=== PATIENT | male | born 1970 | race African-American/Black ===

== ENCOUNTER 2021-04-08 15:30 | Inpatient (IN) | payer MEDICARE, MEDICAID ==
[2021-04-08] MEDS ORDERED: HYDROcodone/Acetaminophen 10/325 mg Tablet PO PRN (20:32)
[2021-04-08] MEDS ORDERED: Bisacodyl 5 MG TAB PO PRN (20:35)
[2021-04-08] MEDS ORDERED: Artificial Tear Sol 15 ML BOT EA EYE PRN (20:35)
[2021-04-08] MEDS ORDERED: diphenhydrAMINE 25 MG CAP PO PRN (20:35)
[2021-04-08] MEDS ORDERED: Cepastat Lozenges 1 LOZ PO PRN (20:35)
[2021-04-08] MEDS ORDERED: Eucerin (Mineral Oil/Petrolatum,White) 30 gm Jar TOP PRN (20:35)
[2021-04-08] MEDS ORDERED: Senokot S 8.6-50 MG TAB PO PRN (20:35)
[2021-04-08] MEDS ORDERED: Acetaminophen 650 MG Suppository PR PRN (20:35)
[2021-04-08] MEDS ORDERED: Acetaminophen 325 MG TAB PO PRN (20:35)
[2021-04-08] MEDS ORDERED: cloNIDine 0.1 MG TAB PO PRN (20:35)
[2021-04-08] MEDS ORDERED: Loperamide HCl 2 MG CAP PO PRN ×2 (20:35)
[2021-04-08] MEDS ORDERED: Calcium Carbonate 500 MG ChewTAB PO PRN (20:35)
[2021-04-08] MEDS ORDERED: Ondansetron ODT 4 MG TAB PO PRN (20:35)
[2021-04-08] MEDS ORDERED: Ondansetron PF 4 MG/2 ML Vial IVP PRN (20:35)
[2021-04-08] MEDS: Famotidine 20 MG TAB PO SCH (21:56)
[2021-04-08] MEDS: CeleCOXIB 100 MG CAP PO SCH (21:56)
[2021-04-08] MEDS: Betamethasone Val 0.1% OINT 15 GM TUBE TOP SCH (21:58)
[2021-04-09 05:41] LABS: Band 7 % (5-11); Eosinophils 8 % (0-10); Hemoglobin 9.3 g/dL (14.0-18.0); Hypochromia SLIGHT = 6-15 cells (100X) (0-5/hpf); Lymphocytes 24 % (21-51); MDiff Complete? YES; Mean Corpuscular HGB CONC 30.8 g/dL (32.0-36.0); Mean Corpuscular Hemoglobin 24.1 pg (27.0-31.0); Mean Corpuscular Volume 78.3 fL (78.0-98.0); Mean Platelet Volume 5.5 fL (7.4-10.4); Metamyelocyte 1 % (0-0); Microcytosis MODERATE=15-30 cells (100X) (0-5/hpf); Monocytes 6 % (0-10); Neutrophil 54 % (42-75); Platelet Count 782 thou/uL (130-400); Platelet Morphology Comment Appears Increased; Red Blood Cell (RBC) Count 3.86 mill/uL (4.70-6.10); White Blood Cell (WBC) Count 15.8 thou/uL (4.8-10.8)
[2021-04-09 05:45] LABS: ALT (SGPT) 38 U/L (8-55); AST (SGOT) 19 U/L (5-34); Albumin 3.4 g/dL (3.5-5.0); Alkaline Phosphatase 65 U/L (40-110); Anion Gap 14 mmol/L (10-20); BUN (Urea Nitrogen) 16 mg/dL (8.4-25.7); Bilirubin, Total 0.2 mg/dL (0.2-1.2); Calc. Creatinine Clearance 133 mL/min (70-130); Calcium 9.4 mg/dL (7.8-10.44); Carbon Dioxide 24 mmol/L (22-29); Chloride 103 mmol/L (98-107); Globulin 4.4 g/dL (2.4-3.5); Glucose 82 mg/dL (70-105); Potassium 4.2 mmol/L (3.5-5.1); Protein, Total 7.8 g/dL (6.0-8.3); Sodium 137 mmol/L (136-145)
[2021-04-09] MEDS ORDERED: Ondansetron ODT 4 MG TAB SL PRN (07:30)
[2021-04-09] MEDS: Ascorbic Acid 500 mg Chewable Tablet PO SCH (08:25)
[2021-04-09] MEDS: CeleCOXIB 100 MG CAP PO SCH ×2 (08:26→20:12)
[2021-04-09] MEDS: Famotidine 20 MG TAB PO SCH ×2 (08:26→20:13)
[2021-04-09] MEDS: Thiamine 100 MG TAB PO SCH (08:26)
[2021-04-09] MEDS: Cholecalciferol 1,000 UNITS (25 MCG) TAB PO SCH (08:27)
[2021-04-09] MEDS: Multivitamin W/ Minerals 1 TAB PO SCH (08:27)
[2021-04-09] MEDS: Betamethasone Val 0.1% OINT 15 GM TUBE TOP SCH ×2 (08:27→20:11)
[2021-04-09] MEDS: Aspirin 81 mg Enteric Coated Tablet PO SCH (08:27)
[2021-04-09] MEDS: Cyanocobalamin (Vitamin B-12) 1,000 MCG TAB PO SCH (08:27)
[2021-04-09] MEDS ORDERED: Enoxaparin Sodium 40 MG/0.4 ML SYRINGE SC SCH (09:00)
[2021-04-09] MEDS: Enoxaparin Sodium 40 MG/0.4 ML SYRINGE SC SCH (20:13)
[2021-04-10] MEDS: HYDROcodone/Acetaminophen 10/325 mg Tablet PO PRN ×2 (09:37→20:23)
[2021-04-10] MEDS: Famotidine 20 MG TAB PO SCH ×2 (09:40→20:22)
[2021-04-10] MEDS: Thiamine 100 MG TAB PO SCH (09:40)
[2021-04-10] MEDS: CeleCOXIB 100 MG CAP PO SCH ×2 (09:40→20:24)
[2021-04-10] MEDS: Ascorbic Acid 500 mg Chewable Tablet PO SCH (09:41)
[2021-04-10] MEDS: Aspirin 81 mg Enteric Coated Tablet PO SCH (09:41)
[2021-04-10] MEDS: Cholecalciferol 1,000 UNITS (25 MCG) TAB PO SCH (09:42)
[2021-04-10] MEDS: Multivitamin W/ Minerals 1 TAB PO SCH (09:42)
[2021-04-10] MEDS: Cyanocobalamin (Vitamin B-12) 1,000 MCG TAB PO SCH (09:43)
[2021-04-10] MEDS: Betamethasone Val 0.1% OINT 15 GM TUBE TOP SCH ×2 (09:43→20:24)
[2021-04-10] MEDS: Enoxaparin Sodium 40 MG/0.4 ML SYRINGE SC SCH (20:25)
[2021-04-11 05:33] LABS: #Basophils 0.1 thou/uL (0.0-0.2); #Eosinphils 0.5 thou/uL (0.0-0.7); #Lymphocytes 4.7 thou/uL (1.20-3.40); #Monocytes 1.3 thou/uL (0.11-0.59); #Neutrophils 7.8 thou/uL (1.40-6.50); %Basophils 0.6 % (0.0-1.0); %Eosinophils 3.4 % (0.0-10.0); %Lymphocytes 32.8 % (21.0-51.0); %Monocytes 9.3 % (0.0-10.0); %Neutrophils 53.9 % (42.0-75.0); Hemoglobin 9.8 g/dL (14.0-18.0); Hypochromia SLIGHT = 6-15 cells (100X) (0-5/hpf); MDiff Complete? YES; Mean Corpuscular HGB CONC 30.8 g/dL (32.0-36.0); Mean Corpuscular Hemoglobin 24.7 pg (27.0-31.0); Mean Corpuscular Volume 80.3 fL (78.0-98.0); Microcytosis SLIGHT = 6-15 cells (100X) (0-5/hpf); Platelet Count 713 thou/uL (130-400); Platelet Morphology Comment Appears Increased; RBC Distribution Width 17.1 % (11.5-14.5); Red Blood Cell (RBC) Count 3.96 mill/uL (4.70-6.10); White Blood Cell (WBC) Count 14.4 thou/uL (4.8-10.8)
[2021-04-11 05:37] LABS: Anion Gap 15 mmol/L (10-20); BUN (Urea Nitrogen) 24 mg/dL (8.4-25.7); Calc. Creatinine Clearance 127 mL/min (70-130); Calcium 9.4 mg/dL (7.8-10.44); Carbon Dioxide 23 mmol/L (22-29); Chloride 104 mmol/L (98-107); Glucose 80 mg/dL (70-105); Potassium 4.4 mmol/L (3.5-5.1); Sodium 138 mmol/L (136-145)
[2021-04-11] MEDS: Cholecalciferol 1,000 UNITS (25 MCG) TAB PO SCH (08:36)
[2021-04-11] MEDS: Cyanocobalamin (Vitamin B-12) 1,000 MCG TAB PO SCH (08:36)
[2021-04-11] MEDS: Ascorbic Acid 500 mg Chewable Tablet PO SCH (08:36)
[2021-04-11] MEDS: Famotidine 20 MG TAB PO SCH ×2 (08:36→20:50)
[2021-04-11] MEDS: Thiamine 100 MG TAB PO SCH (08:36)
[2021-04-11] MEDS: CeleCOXIB 100 MG CAP PO SCH ×2 (08:36→20:50)
[2021-04-11] MEDS: HYDROcodone/Acetaminophen 10/325 mg Tablet PO PRN ×2 (08:38→20:49)
[2021-04-11] MEDS: Multivitamin W/ Minerals 1 TAB PO SCH (08:39)
[2021-04-11] MEDS: Aspirin 81 mg Enteric Coated Tablet PO SCH (08:39)
[2021-04-11] MEDS: Betamethasone Val 0.1% OINT 15 GM TUBE TOP SCH ×2 (08:39→20:51)
[2021-04-11] MEDS: Enoxaparin Sodium 40 MG/0.4 ML SYRINGE SC SCH (20:50)
[2021-04-12] MEDS: Aspirin 81 mg Enteric Coated Tablet PO SCH (08:37)
[2021-04-12] MEDS: Ascorbic Acid 500 mg Chewable Tablet PO SCH (08:37)
[2021-04-12] MEDS: CeleCOXIB 100 MG CAP PO SCH ×2 (08:37→20:39)
[2021-04-12] MEDS: Cholecalciferol 1,000 UNITS (25 MCG) TAB PO SCH (08:37)
[2021-04-12] MEDS: Thiamine 100 MG TAB PO SCH (08:38)
[2021-04-12] MEDS: Famotidine 20 MG TAB PO SCH ×2 (08:38→20:39)
[2021-04-12] MEDS: Cyanocobalamin (Vitamin B-12) 1,000 MCG TAB PO SCH (08:38)
[2021-04-12] MEDS: Multivitamin W/ Minerals 1 TAB PO SCH (08:38)
[2021-04-12] MEDS: Betamethasone Val 0.1% OINT 15 GM TUBE TOP SCH ×2 (08:38→20:39)
[2021-04-12] MEDS: Enoxaparin Sodium 40 MG/0.4 ML SYRINGE SC SCH (20:39)
[2021-04-12] MEDS: HYDROcodone/Acetaminophen 10/325 mg Tablet PO PRN (20:40)
[2021-04-13] MEDS: HYDROcodone/Acetaminophen 10/325 mg Tablet PO PRN ×2 (09:04→20:51)
[2021-04-13] MEDS: Multivitamin W/ Minerals 1 TAB PO SCH (09:06)
[2021-04-13] MEDS: Ascorbic Acid 500 mg Chewable Tablet PO SCH (09:06)
[2021-04-13] MEDS: Famotidine 20 MG TAB PO SCH ×2 (09:06→20:50)
[2021-04-13] MEDS: Aspirin 81 mg Enteric Coated Tablet PO SCH (09:07)
[2021-04-13] MEDS: Cholecalciferol 1,000 UNITS (25 MCG) TAB PO SCH (09:07)
[2021-04-13] MEDS: CeleCOXIB 100 MG CAP PO SCH ×2 (09:07→20:50)
[2021-04-13] MEDS: Thiamine 100 MG TAB PO SCH (09:08)
[2021-04-13] MEDS: Betamethasone Val 0.1% OINT 15 GM TUBE TOP SCH ×2 (09:08→20:52)
[2021-04-13] MEDS: Cyanocobalamin (Vitamin B-12) 1,000 MCG TAB PO SCH (09:08)
[2021-04-13] MEDS ORDERED: Triple Antibiotic Oint 1 GM Packet TOP PRN (09:26)
[2021-04-13] MEDS: Enoxaparin Sodium 40 MG/0.4 ML SYRINGE SC SCH (20:50)
[2021-04-14] MEDS: HYDROcodone/Acetaminophen 10/325 mg Tablet PO PRN (08:48)
[2021-04-14] MEDS: CeleCOXIB 100 MG CAP PO SCH ×2 (08:50→21:24)
[2021-04-14] MEDS: Cyanocobalamin (Vitamin B-12) 1,000 MCG TAB PO SCH (08:50)
[2021-04-14] MEDS: Famotidine 20 MG TAB PO SCH ×2 (08:50→21:24)
[2021-04-14] MEDS: Ascorbic Acid 500 mg Chewable Tablet PO SCH (08:51)
[2021-04-14] MEDS: Multivitamin W/ Minerals 1 TAB PO SCH (08:55)
[2021-04-14] MEDS: Cholecalciferol 1,000 UNITS (25 MCG) TAB PO SCH (08:55)
[2021-04-14] MEDS: Aspirin 81 mg Enteric Coated Tablet PO SCH (08:55)
[2021-04-14] MEDS: Thiamine 100 MG TAB PO SCH (08:55)
[2021-04-14] MEDS: Betamethasone Val 0.1% OINT 15 GM TUBE TOP SCH ×2 (08:56→21:28)
[2021-04-14] MEDS: Bacitracin Zinc Ointment 30 gm TUBE TOP PRN ×2 (16:19→21:23)
[2021-04-14 20:27] VITALS: BMI 21.9
[2021-04-14] MEDS: Enoxaparin Sodium 40 MG/0.4 ML SYRINGE SC SCH (21:24)
[2021-04-15 05:37] LABS: #Basophils 0.1 thou/uL (0.0-0.2); #Eosinphils 0.4 thou/uL (0.0-0.7); #Lymphocytes 4.5 thou/uL (1.20-3.40); #Monocytes 1.1 thou/uL (0.11-0.59); #Neutrophils 5.1 thou/uL (1.40-6.50); %Eosinophils 3.8 % (0.0-10.0); %Lymphocytes 40.2 % (21.0-51.0); %Monocytes 9.5 % (0.0-10.0); %Neutrophils 45.5 % (42.0-75.0); Hemoglobin 9.9 g/dL (14.0-18.0); Mean Corpuscular Hemoglobin 24.7 pg (27.0-31.0); Mean Corpuscular Volume 79.6 fL (78.0-98.0); Mean Platelet Volume 7.2 fL (7.4-10.4); Platelet Count 462 thou/uL (130-400); RBC Distribution Width 17.5 % (11.5-14.5); Red Blood Cell (RBC) Count 3.99 mill/uL (4.70-6.10); White Blood Cell (WBC) Count 11.2 thou/uL (4.8-10.8)
[2021-04-15 05:43] LABS: Anion Gap 12 mmol/L (10-20); BUN (Urea Nitrogen) 19 mg/dL (8.4-25.7); Calc. Creatinine Clearance 124 mL/min (70-130); Calcium 9.7 mg/dL (7.8-10.44); Carbon Dioxide 24 mmol/L (22-29); Chloride 104 mmol/L (98-107); Glucose 79 mg/dL (70-105); Potassium 4.4 mmol/L (3.5-5.1); Sodium 136 mmol/L (136-145)
[2021-04-15] MEDS: Ascorbic Acid 500 mg Chewable Tablet PO SCH (08:59)
[2021-04-15] MEDS: Cholecalciferol 1,000 UNITS (25 MCG) TAB PO SCH (08:59)
[2021-04-15] MEDS: Famotidine 20 MG TAB PO SCH ×2 (09:00→20:59)
[2021-04-15] MEDS: CeleCOXIB 100 MG CAP PO SCH ×2 (09:00→20:58)
[2021-04-15] MEDS: Cyanocobalamin (Vitamin B-12) 1,000 MCG TAB PO SCH (09:00)
[2021-04-15] MEDS: Betamethasone Val 0.1% OINT 15 GM TUBE TOP SCH ×2 (09:00→21:00)
[2021-04-15] MEDS: Multivitamin W/ Minerals 1 TAB PO SCH (09:00)
[2021-04-15] MEDS: Aspirin 81 mg Enteric Coated Tablet PO SCH (09:00)
[2021-04-15] MEDS: Thiamine 100 MG TAB PO SCH (09:00)
[2021-04-15] MEDS: Enoxaparin Sodium 40 MG/0.4 ML SYRINGE SC SCH (20:58)
[2021-04-16] MEDS: Ascorbic Acid 500 mg Chewable Tablet PO SCH (08:25)
[2021-04-16] MEDS: CeleCOXIB 100 MG CAP PO SCH ×2 (08:26→21:00)
[2021-04-16] MEDS: Cholecalciferol 1,000 UNITS (25 MCG) TAB PO SCH (08:26)
[2021-04-16] MEDS: Cyanocobalamin (Vitamin B-12) 1,000 MCG TAB PO SCH (08:26)
[2021-04-16] MEDS: Multivitamin W/ Minerals 1 TAB PO SCH (08:26)
[2021-04-16] MEDS: Aspirin 81 mg Enteric Coated Tablet PO SCH (08:26)
[2021-04-16] MEDS: Famotidine 20 MG TAB PO SCH ×2 (08:26→21:01)
[2021-04-16] MEDS: Thiamine 100 MG TAB PO SCH (08:26)
[2021-04-16] MEDS: Betamethasone Val 0.1% OINT 15 GM TUBE TOP SCH ×2 (08:27→21:03)
[2021-04-16] MEDS: Enoxaparin Sodium 40 MG/0.4 ML SYRINGE SC SCH (21:00)
[2021-04-17] MEDS: Cholecalciferol 1,000 UNITS (25 MCG) TAB PO SCH (08:34)
[2021-04-17] MEDS: Ascorbic Acid 500 mg Chewable Tablet PO SCH (08:34)
[2021-04-17] MEDS: Famotidine 20 MG TAB PO SCH (08:35)
[2021-04-17] MEDS: CeleCOXIB 100 MG CAP PO SCH (08:35)
[2021-04-17] MEDS: Thiamine 100 MG TAB PO SCH (08:35)
[2021-04-17] MEDS: Betamethasone Val 0.1% OINT 15 GM TUBE TOP SCH (08:35)
[2021-04-17] MEDS: Aspirin 81 mg Enteric Coated Tablet PO SCH (08:35)
[2021-04-17] MEDS: Multivitamin W/ Minerals 1 TAB PO SCH (08:35)
[2021-04-17] MEDS: Cyanocobalamin (Vitamin B-12) 1,000 MCG TAB PO SCH (08:35)
[2021-04-17 09:03] VITALS: BP 123/80; TEMP 98.4
== END 2021-04-17 12:35 | disposition home health service (06) | DRG 547 ==
LOC: NAV ACUTE 19:21
PROVIDERS: ADMIT Family Medicine; ATTEND Family Medicine
DX: L40.50 Arthropathic psoriasis, unspecified (principal); R53.1 Weakness; F17.210 Nicotine dependence, cigarettes, uncomplicated; L60.2 Onychogryphosis; L30.8 Other specified dermatitis
CPT/HCPCS: 36415; 80048; 80053; 85025; J1650; Q0163